=== PATIENT | male | born 1985 | race Caucasian/White ===

== ENCOUNTER 2017-06-04 11:00 | Emergency (ER) | payer OTHER ==
[~2017-06-04] VITALS: Ht 182.9 cm; Wt 86.2 kg
[~2017-06-04 11:00] MED LIST: BACTRIM,SEPT1 TABLET PO; ENDOCET 5-3251 EACH PO; KEFLEX500 MG PO; MOTRIN600 MG PO; MOTRIN800 MG PO; NAPROSYN500 MG PO; NICOTINE PATCH1 EAC2 TD; NOHOMEMEDS; NORCO 5/3251 TABLET PO; TRAMADOL HCL50 MG PO; ULTRAM50 MG PO; VALIUM5 MG PO
[2017-06-04] MEDS ORDERED: AUGMENTIN875 MG PO (15:03)
[2017-06-04] MEDS ORDERED: PERCOCET 5/31 TABLET PO (15:03)
[2017-06-04] MEDS ORDERED: MOTRIN600 MG PO (15:04)
[2017-06-04 15:31] VITALS: BP 96/73
== END 2017-06-04 15:45 | disposition home or self-care (01) ==
LOC: EME 11:00
DX: L03.113 Cellulitis of right upper limb (principal); S00.12XA Contusion of left eyelid and periocular area, initial encounter; S16.1XXA Strain of muscle, fascia and tendon at neck level, initial encounter; Y09 Assault by unspecified means
CPT/HCPCS: 70486; 72040; 73130; 99281; 99284; J0696

== ENCOUNTER 2017-07-17 13:38 | Emergency (ER) | payer OTHER ==
[~2017-07-17] VITALS: Ht 182.9 cm; Wt 84.3 kg
[~2017-07-17 13:38] MED LIST changes: +AUGMENTIN875 MG PO; +PERCOCET 5/31 TABLET PO
[2017-07-17] MEDS ORDERED: NAPROSYN500 MG PO (15:35)
[2017-07-17] MEDS ORDERED: VALIUM5 MG PO (15:35)
[2017-07-17] MEDS ORDERED: LIDOCAINE700 MG TP (15:35)
[2017-07-17 15:56] VITALS: BP 135/96
== END 2017-07-17 15:57 | disposition home or self-care (01) ==
LOC: EME 13:38
DX: M43.6 Torticollis (principal); M54.2 Cervicalgia; M25.512 Pain in left shoulder; F17.200 Nicotine dependence, unspecified, uncomplicated
CPT/HCPCS: 93005; 99281; 99283